=== PATIENT | male | born 1950 | race Caucasian/White ===

== ENCOUNTER → 2025-08-31 07:02 | Outpatient (REF) | payer OTHER, SELFPAY | LOC: HWRCS 07:02 | PROVIDERS: ATTENDING PHYSICIAN Internal Medicine Cardiovascular Disease; FAMILY PHYSICIAN Student in an Organized Health Care Education/Training Program | DX: I25.10 Atherosclerotic heart disease of native coronary artery without angina pectoris (principal); Z01.810 Encounter for preprocedural cardiovascular examination | CPT/HCPCS: 78452; 93017; A9500; J2785 ==

== ENCOUNTER 2025-09-07 06:11 | Day surgery (SDC) | payer OTHER, SELFPAY ==
--- NOTE | 2025-08-24 10:56 | VNURNOTE ---
Patient is scheduled for an elective L TKA on 09/07 - he is a same day patient with Dr . Spoke with patient prior to surgery. Introduced role of [facility] Liaison. Patient reports that he lives with his .
PCP is Dr Michel Moran
Discussed [facility] joint protocol and post surgical plans.
Reviewed that he will have VN services initially and will then start outpatient PT.
Patient selects [facility] for his home care needs and [facility]. Appt TBD. Provided pt with Ambulatory [facility] contact number. Advised pt to schedule for or SUN of the surgical week.
Pt is in need of DME. Advised that clinic coordinator will be reaching out to him to assist w/obtaining.
Patient is in agreement with plan and states that his will be home with him. When obtained, advised to bring RW with him day of surgery. Referral placed in [facility].
Plan: [facility] per [facility] joint protocol 09/07 then outpt PT on TBD
--- NOTE | 2025-08-24 13:37 | CM ---
Addendum entered by Gayathri Snider RN 08/25/25 11:32:
CM spoke with patient's and discussed discharge planning. CM provided patient with number for [facility].
Original Note:
Demographics: confirmed
Living situation: lives with
Support Person Post Operatively:
History of
VN: No
SNF: No
Outpatient : CM encouraged patient to make appointment for 09/10. CM confirmed [facility] phone number for patient.
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
PCP: Confirmed
Pharmacy: [facility]
Post Operative Discharge Plan: [facility], and then transition to outpatient PT.
[2025-08-25 11:35] LABS: Hematocrit 41.3 % (39.0-52.0); Hemoglobin 14.6 g/dL (13.0-18.0); Mean Corp Hgb Conc. 35.4 g/dL (33.0-37.0); Mean Corpuscular Volume 91.6 fL (80.0-94.0); Platelet Count 170 10^3/uL (130-400); Red Cell Dist. Width 12.0 % (11.5-14.5)
[2025-08-25 11:53] LABS: ALT (SGPT) 29 U/L (0-50); AST (SGOT) 33 U/L (17-59); Albumin 4.1 g/dl (3.5-5.0); Alkaline Phosphatase 102 U/L (38-126); Blood Urea Nitrogen 12 mg/dl (9-20); Calcium 9.1 mg/dl (8.4-10.2); Carbon Dioxide 25 mmol/L (22-30); Chloride 108 mmol/L (98-107); Glucose 90 mg/dl (70-99); Potassium 5.2 mmol/L (3.5-5.1); Sodium 139 mmol/L (135-145); Total Protein 6.3 g/dl (6.3-8.2); eGFR > 60.00
[2025-08-25 14:06] VITALS: BMI 19.7
[2025-08-25 14:34] LABS: Glycohemoglobin (HgbA1c) 5.8 % (4.0-5.6)
[2025-08-25 18:29] VITALS: BMI 19.7
[2025-09-07] VITALS (15 sets, daily range): BP systolic 102–144; BP diastolic 51–83
[2025-09-07] MEDS: NORMOSOL-R/PLASMALYTE-A 1000 IV ×2 (07:24→11:49)
[2025-09-07] MEDS: CELEBREX 200 MG PO (07:25)
[2025-09-07] MEDS: TYLENOL 650 MG PO (07:25)
[2025-09-07] MEDS: CYKLOKAPRON 650 MG PO (11:51)
[2025-09-07] MEDS: ANCEF 5 IV (12:15)
[2025-09-07] MEDS: FLOMAX 0.4 MG PO (13:55)
[2025-09-07] MEDS: TYLENOL 1000 MG PO (14:05)
== END 2025-09-07 14:50 | disposition home health service (06) ==
LOC: SDS 06:11
PROVIDERS: ATTENDING PHYSICIAN Specialist; FAMILY PHYSICIAN Student in an Organized Health Care Education/Training Program; OTHER PHYSICIAN Internal Medicine Cardiovascular Disease; OTHER PHYSICIAN Physician Assistant
DX: M17.12 Unilateral primary osteoarthritis, left knee (principal)
CPT/HCPCS: 27447; 36415; 73560; 80053; 83036; 85027; 87070; 97116; 97162; C1713; C1776

== ENCOUNTER 2025-09-18 09:09 | Outpatient (RCR) | payer OTHER, SELFPAY | END 2025-09-18 23:59 | disposition home or self-care (01) | LOC: RPT 09:09 | PROVIDERS: ATTENDING PHYSICIAN Specialist; FAMILY PHYSICIAN Student in an Organized Health Care Education/Training Program | DX: Z47.1 Aftercare following joint replacement surgery (principal); Z73.6 Limitation of activities due to disability; R26.2 Difficulty in walking, not elsewhere classified; M62.81 Muscle weakness (generalized); M25.562 Pain in left knee; R26.89 Other abnormalities of gait and mobility; Z96.652 Presence of left artificial knee joint | CPT/HCPCS: 97010; 97110; 97112; 97140; 97162 ==

== ENCOUNTER 2025-10-14 06:36 | Outpatient (RCR) | payer OTHER, SELFPAY | END 2025-10-14 23:59 | disposition home or self-care (01) | LOC: RPT 06:36 | PROVIDERS: ATTENDING PHYSICIAN Specialist; FAMILY PHYSICIAN Student in an Organized Health Care Education/Training Program | DX: Z47.1 Aftercare following joint replacement surgery (principal); Z73.6 Limitation of activities due to disability; R26.2 Difficulty in walking, not elsewhere classified; M62.81 Muscle weakness (generalized); M25.562 Pain in left knee; R26.89 Other abnormalities of gait and mobility; Z96.652 Presence of left artificial knee joint | CPT/HCPCS: 97110; 97112; 97530 ==

== ENCOUNTER 2025-11-17 08:20 | Outpatient (RCR) | payer OTHER, SELFPAY | END 2025-11-17 23:59 | disposition home or self-care (01) | LOC: RPT 08:20 | PROVIDERS: ATTENDING PHYSICIAN Specialist; FAMILY PHYSICIAN Student in an Organized Health Care Education/Training Program | DX: Z47.1 Aftercare following joint replacement surgery (principal); Z73.6 Limitation of activities due to disability; R26.2 Difficulty in walking, not elsewhere classified; M62.81 Muscle weakness (generalized); M25.562 Pain in left knee; R26.89 Other abnormalities of gait and mobility; Z96.652 Presence of left artificial knee joint | CPT/HCPCS: 97110; 97112; 97530 ==